=== PATIENT | female | born 1965 | race Caucasian/White ===

== ENCOUNTER 2025-05-01 06:17 | Day surgery (SDC) | payer OTHER, SELFPAY ==
--- NOTE | 2025-04-25 09:15 | VNURNOTE ---
Patient is scheduled for an elective R MARIA DE JESUS on 05/01 - she is a same day patient with Dr Mobley. Spoke with patient prior to surgery. Introduced role of [facility] Liaison. Patient reports that she lives with her spouse.
She has a raised toilet seat, cane and rolling walker. She is declining a hip kit and shower chair.
She had VN services after prior THR and was same day surgery.
Discussed [facility] joint protocol and post surgical plans.
Reviewed that she will have VN services initially and will then start outpatient PT.
Patient selects [facility] for her home care needs and [facility]. Scheduled TBD. Advised patient to schedule outpt PT for end of surgical week (05/04 or 05/05). Patient verbalized understanding.
Patient is in agreement with plan and states that her spouse and kids will be home with her. Advised to bring RW with her day of surgery. Referral placed in [facility].
Plan: [facility] per [facility] joint protocol 05/01 then outpt PT TBD
--- NOTE | 2025-04-25 13:06 | CM ---
CM spoke with patient. Patient confirmed demographics. Patient has her outpatient PT appointments set up at [facility]. Patient will have her as a support post operatively. CM will remain available as needed.
[2025-04-26 09:59] VITALS: BMI 27.8
[2025-04-26 10:59] LABS: Hematocrit 41.3 % (37.0-47.0); Hemoglobin 13.6 g/dL (12.0-16.0); Mean Corp Hgb Conc. 32.9 g/dL (33.0-37.0); Mean Corpuscular Volume 88.1 fL (81.0-99.0); Platelet Count 194 10^3/uL (130-400); Red Cell Dist. Width 14.6 % (11.5-14.5)
[2025-04-26 12:05] LABS: Glycohemoglobin (HgbA1c) 5.7 % (4.0-5.6)
[2025-04-26 12:57] LABS: ALT (SGPT) 41 U/L (0-35); AST (SGOT) 34 U/L (14-36); Albumin 4.9 g/dl (3.5-5.0); Alkaline Phosphatase 107 U/L (38-126); Blood Urea Nitrogen 12 mg/dl (7-17); Calcium 9.8 mg/dl (8.4-10.2); Carbon Dioxide 25 mmol/L (22-30); Chloride 105 mmol/L (98-107); Estimated Creatinine Clearance 82 ml/min; Glucose 131 mg/dl (70-99); Potassium 4.3 mmol/L (3.5-5.1); Sodium 139 mmol/L (135-145); Total Protein 8.2 g/dl (6.3-8.2); eGFR > 60.00
[2025-04-27 10:35] VITALS: BMI 27.8
[2025-05-01] VITALS (11 sets, daily range): BP systolic 97–167; BP diastolic 62–98
[2025-05-01] MEDS: CELEBREX 200 MG PO (07:09)
[2025-05-01] MEDS: TYLENOL 650 MG PO (07:09)
[2025-05-01] MEDS: NORMOSOL-R/PLASMALYTE-A 1000 IV (08:06)
[2025-05-01] MEDS: ROXICODONE 5 MG PO (12:56)
[2025-05-01] MEDS: ANCEF 5 IV (13:09)
== END 2025-05-01 13:18 | disposition home health service (06) ==
LOC: SDS 06:17
PROVIDERS: ATTENDING PHYSICIAN Specialist; FAMILY PHYSICIAN Internal Medicine
DX: M16.11 Unilateral primary osteoarthritis, right hip (principal); Z98.890 Other specified postprocedural states
CPT/HCPCS: 27130; C1713; C1776; 36415; 73502; 80053; 83036; 85027; 87070; 93005; 97162